=== PATIENT | male | born 1950 | race Caucasian/White ===

== ENCOUNTER → 2017-06-21 | Outpatient (CLI) | payer BC ==
[~2017-06-21] MED LIST: ANT125 PO; ASPI-435 PO; CARV6.252 PO; CHOL100041 PO; DMD20 PO; FLV1 PO; GLIP5TAB11 PO; INSDGIPEN SC; ISOS30TA35 PO; LOSA1TAB PO; LPT40 PO; METF1000 PO; THM100 PO; TORS20TA2 PO
--- NOTE | 2017-06-21 09:30 | DIAGNOSTIC IMAGING REPORT ---
CT OF THE HEAD WITHOUT CONTRAST CLINICAL HISTORY: Intracranial hematoma. COMPARISON STUDY: Head CT December 29, 2015. CT DOSE: 638.56 mGycm TECHNIQUE: Helical axial images of the head were obtained without IV contrast. Automated exposure control was utilized for the study. A dose lowering technique was utilized adhering to the principles of ALARA. FINDINGS: No acute intracranial hemorrhage, midline shift or mass effect is present. The left frontal lobe hematoma shown on exam of December 29, 2015 has resolved. There is expected encephalomalacia with mild dilatation of the frontal horn of the left lateral ventricle. The basilar cisterns are patent. There are no extra-axial collections. 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 There is no calvarial fracture. Visualized portions of the sinuses and the mastoid air cells are clear. IMPRESSION: 1. No acute intracranial findings. 2. Resolution of the left frontal intraparenchymal hematoma since exam of December 29, 2015 with expected encephalomalacia. Electronically signed by: Anurag Lozoya M.D. 06/21/2017 9:29 AM Dictated Date/Time: 06/21/2017 9:21 AM
== END | disposition home or self-care (01) ==
LOC: C.CTS 09:06
PROVIDERS: ATTEND Internal Medicine
DX: S06.2X0D Diffuse traumatic brain injury without loss of consciousness, subsequent encounter (principal); G93.89 Other specified disorders of brain; X58.XXXD Exposure to other specified factors, subsequent encounter